=== PATIENT | male | born 2000 | race Two or more races ===

== ENCOUNTER 2019-12-08 14:04 | Emergency (ER) | payer OTHER ==
[2019-12-08 14:13] VITALS: BP 133/76; PULSE 84; TEMP 98; BMI 53.1
[2019-12-08] MEDS ORDERED: ACETAMINOPHEN 325 MG TABLET (FP) PO ONE (14:13)
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
[2019-12-08] MEDS ORDERED: ACETAMINOPHEN 325 MG TABLET (FP) ONE (15:06)
--- OUTSIDE RECORDS SUMMARY | 2019-12-08 15:17 | XMS ---
:2000 Author Organization [facility] Care Team Providers Name Role Phone MEHRDAD, [email or web address] Unavailable Unavailable Re-disclosure Warning The records that you are about to access may contain information from federally- assisted alcohol or drug abuse programs. If such information is present, then the following federally mandated warning applies: This information has been disclosed to you from records protected by federal confidentiality rules (42 CFR part 2). The federal rules prohibit you from making any further disclosure of this information unless further disclosure is expressly permitted by the written consent of the person to whom it pertains or as otherwise permitted by 42 CFR part 2. A general authorization for the release of medical or other information is NOT sufficient for this purpose. The Federal rules restrict any use of the information to criminally investigate or prosecute any alcohol or drug abuse patient.The records that you are about to access may contain highly sensitive health information, the redisclosure of which is protected by Article 27-F of the [facility] Public Health law. If you continue you may haveaccess to information: Regarding HIV / AIDS; Provided by facilities licensed or operated by the [facility] Office of Mental Health; or Provided by the [facility] Office for People With Developmental Disabilities. If such information is present, then the following [facility] mandated warning applies: This information has been disclosed to you from confidential records which are protected by state law. State law prohibits you from making any further disclosure of this information without the specific written consent of the person to whom it pertains, or as otherwise permitted by law. Any unauthorized further disclosure in violation of state law may result in a fine or shelter sentence or both. A general authorization for the release of medical or other information is NOT sufficient authorization for further disclosure. Encounters Encounter Providers Location Date Indications Data Source(s ) Outpatient Attender: [id number] 10/11/2019 [facility] ([facility] 01:13:44 PM [facility] EDT [facility]) Patient admitted. Outpatient Attender: [id number] [facility] 05/30/2019 07:17:01 AM [facility] ([facility] EDT [facility]) Patient admitted. Outpatient 02/10/2019 06:53:08 PM EST [facility] ([facility] ices) Outpatient 08/26/2018 08:08:00 PM EDT - [facility] ([facility] 12/10/2018 04:00:00 AM EDT [facility]) Outpatient 05/31/2018 08:04:00 AM EDT [facility] ([facility]) Outpatient 04/02/2018 05:00:00 AM EST [facility] ([facility]) Medications Medication Brand Start Product Dose Route Administrative [facility] Indications Reaction Description Data Name Date Form Instructions Instructions Source(s) Clozapine Clozar 11/03/ 2.0 Oral active [facility] 100 MG Oral il 2020 Table ([facility] 04:[facility]: [facility] [Clozaril] 00 AM [facility]) Sertraline Sertra 1.0 Oral active [facility] 100 MG Oral line 2020 Table ([facility] 04:[facility]: t [facility] 00 AM [facility] EDT Services) Clozapine Clozar 11/03/ 2.0 Oral active [facility] 25 MG Oral il 2020 Table ([facility] 04:[facility]: [facility] [Clozaril] 00 AM [facility] EDT [facility]) Clozapine Clozar 2.0 Oral active [facility] 25 MG Oral il 2020 Table ([facility] 04:00: t [facility] [Clozaril] 00 AM [facility]T [facility]) Clozapine Clozar 10/05/ 2.0 Oral active [facility] 100 MG Oral il 2020 Table ([facility] 04:00: t [facility] [Clozaril] 00 AM [facility] EDT [facility]) Sertraline Sertra 1.0 Oral active [facility] 100 MG Oral line 2020 Table ([facility] 04:00: t [facility] 00 AM Community EDT Services) Sertraline Sertra 1.0 Oral active [facility] 100 MG Oral line 2020 Table ([facility] 04:00: t [facility] 00 AM Community EDT Services) Clozapine Clozar 09/07/ 2.0 Oral active [facility] 100 MG Oral il 2020 Table ([facility] 04:00: t [facility] [Clozaril] 00 AM [facility]) Clozapine Clozar 09/07/ 2.0 Oral active [facility] 25 MG Oral il 2020 Table ([facility] 04:00: t [facility] [Clozaril] 00 AM [facility] EDT [facility]) Clozapine Clozar 08/10/ 2.0 Oral active [facility] 25 MG Oral il 2020 Table ([facility] 04:00: t [facility] [Clozaril] 00 AM [facility] EDT Services) Clozapine Clozar 08/10/ 2.0 Oral active [facility] 100 MG Oral il 2020 Table ([facility] 04:00: t [facility] [Clozaril] 00 AM [facility] EDT Services) Sertraline Sertra 1.0 Oral active [facility] 100 MG Oral line 2020 Table ([facility] 04:00: t [facility] 00 AM Community EDT Services) Clozapine Clozar 07/13/ 2.0 Oral active [facility] 25 MG Oral il 2020 Table ([facility] 04:00: t [facility] [Clozaril] 00 AM [facility] EDT Services) Clozapine Clozar 07/13/ 2.0 Oral active [facility] 100 MG Oral il 2020 Table ([facility] 04:00: t [facility] [Clozaril] 00 AM [facility] EDT Services) Sertraline Sertra 07/13/ 1.0 Oral active [facility] 100 MG Oral line 2020 Table ([facility] 04:00: t [facility] 00 AM Community EDT Services) Clozapine Clozar 06/15/ 2.0 Oral active [facility] 25 MG Oral il 2020 Table ([facility] 04:00: t [facility] [Clozaril] 00 AM [facility] EDT Services) Clozapine Clozar 06/15/ 2.0 Oral active [facility] 100 MG Oral il 2020 Table ([facility] 04:00: t er [facility] [Clozaril] 00 AM [facility] EDT Services) Sertraline Sertra 1.0 Oral active [facility] 100 MG Oral line 2020 Table ([facility] 04:00: t [facility] 00 AM Community EDT Services) Clozapine Clozar 05/18/ 2.0 Oral active [facility] 25 MG Oral il 2019 Table ([facility] 04:00: t [facility] [Clozaril] 00 AM [facility] EDT Services) Clozapine Clozar 05/18/ 2.0 Oral active [facility] 100 MG Oral il 2019 Table ([facility] 04:00: t [facility] [Clozaril] 00 AM Commun[facility] EDT Services) Sertraline Sertra 1.0 Oral active [facility] 100 MG Oral line 2019 Table ([facility] 04:00: t [facility] 00 AM Community EDT Services) Clozapine Clozar 2.0 Oral active [facility] 25 MG Oral il 2019 Table ([facility] 05:00: t [facility] [Clozaril] 00 AM Commun[facility] EST Services) Clozapine Clozar 04/07/ 2.0 Oral active [facility] 100 MG Oral il 2019 Table ([facility] 05:00: t [facility] [Clozaril] 00 AM Commun[facility] EST Services) Sertraline Sertra 1.0 Oral active [facility] 100 MG Oral line 2019 Table ([facility] 05:00: t [facility] 00 AM Community EST Services) Clozapine Clozar 30/ 2.0 Oral active [facility] 25 MG Oral il 2018 Table ([facility] 05:00: t [facility] [Clozaril] 00 AM Commun[facility] EST Services) Sertraline Sertra 1.0 Oral active [facility] 100 MG Oral line 2018 Table ([facility] 05:00: t [facility] 00 AM Community EST Services) Clozapine Clozar 30/ 2.0 Oral active [facility] 100 MG Oral il 2018 Table ([facility] 05:00: t [facility] [Clozaril] 00 AM Commun[facility] EST Services) Sertraline Sertra 02/10/ 1.0 Oral active [facility] 100 MG Oral line 2018 Table ([facility] 05:00: t [facility] 00 AM Community EST Services) Clozapine Clozar 02/10/ 2.0 Oral active [facility] 100 MG Oral il 2018 Table ([facility] 05:00: t [facility] [Clozaril] 00 AM Commun[facility] EST Services) Clozapine Clozar 02/10/ 2.0 Oral active [facility] 25 MG Oral il 2018 Table ([facility] 05:00: t [facility] [Clozaril] 00 AM Commun[facility] EST Services) 01/06/ ORAL active [facility] 2018 ([facility] 04:00: er [facility] 00 AM Community EDT Services) Sertraline Sertra 1.0 Oral active [facility] 100 MG Oral line 2018 Table ([facility] 04:00: t [facility] 00 AM Community EDT Services) Clozapine Clozar 2.0 Oral active [facility] 25 MG Oral il 2018 Table ([facility] 04:00: t [facility] [Clozaril] 00 AM Commun[facility] EDT Services) Clozapine Clozar 2.0 Oral active [facility] 100 MG Oral il 2018 Table ([facility] 04:00: t [facility] [Clozaril] 00 AM Commun[facility] EDT Services) 01/06/ ORAL active [facility] 2018 ( 04:00: er [facility] 00 AM Community EDT Services) 01/06/ ORAL active [facility] 2018 ( 04:00: er [facility] 00 AM Community EDT Services) 12/02/ ORAL complet [facility] 2019 ed ( 04:00: er [facility] 00 AM Community EDT Services) 12/02/ ORAL complet [facility] 2019 ed ( 04:00: er [facility] 00 AM Community EDT Services) 12/02/ ORAL complet [facility] 2019 ed ( 04:00: er [facility] 00 AM Community EDT Services) 11/04/ ORAL complet [facility] 2019 ed ( 04:00: er [facility] 00 AM Community EDT Services) 11/04/ ORAL complet [facility] 2019 ed ([facility] 04:00: er [facility] 00 AM Community EDT Services) 11/04/ ORAL complet [facility] 2019 ed ( 04:00: er [facility] 00 AM Community EDT Services) 09/23/ ORAL complet [facility] 2019 ed ([facility] 04:00: er [facility] 00 AM Community EDT Services) ORAL complet [facility] 2019 ed ([facility] 04:00: er [facility] 00 AM Community EDT Services) 09/23/ ORAL complet [facility] 2019 ed ([facility] 04:00: er [facility] 00 AM Community EDT Services) 08/26/ ORAL complet [facility] 2019 ed ([facility] 04:00: er [facility] 00 AM Community EDT Services) ORAL complet [facility] 2019 ed ([facility] 04:00: er [facility] 00 AM Community EDT Services) 08/26/ ORAL complet [facility] 2018 ed ([facility] 04:00: er [facility] 00 AM Community EDT Services) 07/01/ ORAL complet [facility] 2018 ed ([facility] 04:00: er [facility] 00 AM Community EDT Services) 07/01/ ORAL complet [facility] 2019 ed ([facility] 04[facility]00: er [facility] 00 AM Community EDT Services) ORAL complet [facility] 2019 ed ([facility] 04:00: er [facility] 00 AM Community EDT Services) ORAL complet [facility] 2019 ed ([facility] 04:00: er [facility] 00 AM Community EDT Services) ORAL complet [facility] 2019 ed ([facility] 04:00: er [facility] 00 AM Community EDT Services) ORAL complet [facility] 2019 ed ([facility] 04:00: er [facility] 00 AM Community EDT Services) Insurance Providers Payer name Policy type Policy ID Covered Covered green party's Policy P emiliano / Coverage green party ID relationship to [place] [facility] ormation type [place] [facility] [id number] MEDICAID COMM PLAN MEDICAID [id number] Problems, Conditions, and Diagnoses Code Display Name Description Problem Type Effective Data Dates Source(s) [id number] Schizoaffective Schizoaffective Complaint 06/14/2018 [facility] disorder, bipolar disorder, bipolar 05:30:00 PM ([place] type type EDT [facility])
[2019-12-08] MEDS ORDERED: KETOROLAC TROMETHAMINE 30 MG/1 ML VIAL IM ONE (16:25)
[2019-12-08] MEDS ORDERED: KETOROLAC TROMETHAMINE 30 MG/1 ML VIAL ONE (16:26)
== END 2019-12-08 17:20 | disposition home or self-care (01) ==
LOC: JER 14:04
DX: R51 Headache (principal)
CPT/HCPCS: 70450-TC; 70486-TC; 71046-TC-FY; 99285-25

== ENCOUNTER 2019-12-09 11:07 | Emergency (ER) | payer OTHER ==
[2019-12-09 11:14] VITALS: TEMP 97.6; BMI 51.6
[2019-12-09] MEDS ORDERED: ONDANSETRON *ODT* 4 MG TABLET SL ONE (11:24)
[2019-12-09] MEDS ORDERED: ONDANSETRON *ODT* 4 MG TABLET ONE (11:27)
--- OUTSIDE RECORDS SUMMARY | 2019-12-09 11:37 | XMS ---
:2000 [address] Organization [facility] Care Team Providers Name Role Phone RON, [id number] Unavailable Unavailable Re-disclosure Warning The records [...] by Article 27-F of the [facility] Public Health law. If you continue you may haveaccess to information: Regarding HIV / AIDS; Provided by facilities licensed or operated by the [facility] Office of Mental Health; or Provided by the [facility] Office for People With Developmental Disabilities. If such information is present, then the following [facility] mandated warning applies: This information has been [...] law may result in a fine or half-way sentence or both. A general authorization for the release of medical or other information is NOT sufficient authorization for further disclosure. Encounters Encounter Providers Location Date Indications Data Source(s ) Outpatient Attender: [id number] 10/11/2019 [facility] ([facility] 01:13:44 PM [facility] EDT [facility]) Patient admitted. Outpatient Attender: [id number] [facility] 05/30/2019 07:17:01 AM [facility] ([facility] EDT [facility]) Patient admitted. Outpatient 02/10/2019 06:53:08 PM EST [facility] ([facility] ices) Outpatient 08/26/2018 08:08:00 PM EDT - [facility] ([facility] 12/10/2018 04:00:00 AM EDT [facility]) Outpatient 05/31/2018 08:04:00 AM EDT [facility] ([facility]) Outpatient 04/02/2018 05:00:00 AM EST [facility] ([facility]) Medications Medication Brand Start Product Dose Route Administrative Pharmacy [facility] Indications Reaction Description Data Name Date Form Instructions Instructions Source(s) Clozapine Clozar 11/03/ 2.0 Oral active [facility] 100 MG Oral il 2020 Table ([facility]Cl[facility] 00 AM [facility] EDT Services) Sertraline Sertra 1.0 Oral active [facility] 100 MG Oral line 2020 Table ([facility] 00 AM [facility] EDT Services) Clozapine Clozar 11/03/ 2.0 Oral active [facility] 25 MG Oral il 2020 [facility] ([facility] [Clozaril] 00 AM [facility] EDT Services) Clozapine Clozar 2.0 Oral active [facility] 25 MG Oral il 2020 Table ([facility] [Clozaril] 00 AM [facility] EDT Services) Clozapine Clozar 10/05/ 2.0 Oral active [facility] 100 MG Oral il 2020 Table ([facility]: [facility] [Clozaril] 00 AM [facility] EDT Services) Sertraline Sertra 1.0 Oral active [facility] 100 MG Oral line 2020 Table ([facility]: [facility] 00 AM Community EDT Services) Sertraline Sertra 1.0 Oral active [facility] 100 MG Oral line 2020 Table ([facility]: [facility] 00 AM [facility] EDT Services) Clozapine Clozar 09/07/ 2.0 Oral active [facility] 100 MG Oral il 2020 Table ([facility]: [facility] [Clozaril] 00 AM [facility] EDT Services) Clozapine Clozar 09/07/ 2.0 Oral active [facility] 25 MG Oral il 2020 Table ([facility] [Clozaril] 00 AM Commun[facility] EDT Services) Clozapine Clozar 08/10/ 2.0 Oral active [facility] 25 MG Oral il 2020 Table ([facility]: [facility] [Clozaril] 00 AM [facility] EDT Services) Clozapine Clozar 08/10/ 2.0 Oral active [facility] 100 MG Oral il 2020 Table ([facility]: [facility] [Clozaril] 00 AM Commun[facility] EDT Services) Sertraline Sertra 1.0 Oral active [facility] 100 MG Oral line 2020 Table ([facility]: [facility] 00 AM Community EDT Services) Clozapine Clozar 07/13/ 2.0 Oral active [facility] 25 MG Oral il 2020 Table ([facility] [Clozaril] 00 AM Commun[facility] EDT Services) Clozapine Clozar 07/13/ 2.0 Oral active [facility] 100 MG Oral il 2020 Table ([facility] 04:[facility]: [facility] [Clozaril] 00 AM Commun[facility] EDT Services) Sertraline Sertra 07/13/ 1.0 Oral active [facility] 100 MG Oral line 2020 Table ([facility]: [facility] 00 AM Community EDT Services) Clozapine Clozar 06/15/ 2.0 Oral active [facility] 25 MG Oral il 2020 Table ([facility]: [facility] [Clozaril] 00 AM Commun[facility] y EDT Services) Clozapine Clozar 06/15/ 2.0 Oral active [facility] 100 MG Oral il 2020 Table ([facility] 04:[facility]: [facility] [Clozaril] 00 AM Commun[facility] EDT Services) Sertraline Sertra 1.0 Oral active [facility] 100 MG Oral line 2020 Table ([facility] 04:[facility]: [facility] 00 AM Community EDT Services) Clozapine Clozar 05/18/ 2.0 Oral active [facility] 25 MG Oral il 2019 Table ([facility]: [facility] [Clozaril] 00 AM Communit y EDT Services) Clozapine Clozar 05/18/ 2.0 Oral active [facility] 100 MG Oral il 2019 Table ([facility] 04:[facility]: [facility] [Clozaril] 00 AM Commun[facility] EDT Services) Sertraline Sertra 1.0 Oral active [facility] 100 MG Oral line 2019 Table ([facility] 04:[facility]: [facility] 00 AM Community EDT Services) Clozapine Clozar 2.0 Oral active [facility] 25 MG Oral il 2019 Table ([facility] 05:[facility]: [facility] [Clozaril] 00 AM Communit y EST Services) Clozapine Clozar 04/07/ 2.0 Oral active [facility] 100 MG Oral il 2019 Table ([facility] 05:[facility]: [facility] [Clozaril] 00 AM Communit y EST Services) Sertraline Sertra 1.0 Oral active [facility] 100 MG Oral line 2019 Table ([facility] 05:[facility]: [facility] 00 AM Community EST Services) Clozapine Clozar 30/ 2.0 Oral active [facility] 25 MG Oral il 2018 Table ([facility]: [facility] [Clozaril] 00 AM Communit y EST Services) Sertraline Sertra 1.0 Oral active [facility] 100 MG Oral line 2018 Table ([facility] 05:[facility]: [facility] 00 AM Community EST Services) Clozapine Clozar 30/ 2.0 Oral active [facility] 100 MG Oral il 2018 Table ([facility] 05:[facility]: [facility] [Clozaril] 00 AM Communit y EST Services) Sertraline Sertra 02/10/ 1.0 Oral active [facility] 100 MG Oral line 2018 Table ([facility] 05:[facility]: [facility] 00 AM Community EST Services) Clozapine Clozar 02/10/ 2.0 Oral active [facility] 100 MG Oral il 2018 Table ([facility] 05:[facility]: [facility] [Clozaril] 00 AM Communit y EST Services) Clozapine Clozar 02/10/ 2.0 Oral active [facility] 25 MG Oral il 2018 Table ([facility]: [facility] [Clozaril] 00 AM Communit y EST Services) 01/06/ ORAL active [facility]SMART 2018 ([facility] 04:00: er [facility] 00 AM Community EDT Services) Sertraline Sertra 1.0 Oral active NET SMART 100 MG Oral line 2018 Table ([facility] 04:[facility]: [facility] 00 AM Community EDT Services) Clozapine Clozar 2.0 Oral active [facility] 25 MG Oral il 2018 Table ([facility] 04:[facility]: [facility] [Clozaril] 00 AM Communit y EDT Services) Clozapine Clozar 2.0 Oral active [facility] 100 MG Oral il 2018 Table ([facility] 04:[facility]: [facility] [Clozaril] 00 AM Communit y EDT Services) 01/06/ ORAL active [facility]ART 2018 ( 04:00: [facility] 00 AM Community EDT Services) 01/06/ ORAL active [facility] 2018 ( 04:00: [facility] 00 AM Community EDT Services) 12/02/ ORAL complet [facility]ART 2019 ed ( 04:00: [facility] 00 AM Community EDT Services) 12/02/ ORAL complet [facility]SMART 2019 ed ( 04:00: [facility] 00 AM Community EDT Services) 12/02/ ORAL complet [facility]ART 2019 ed ( 04:00: [facility] 00 AM Community EDT Services) 11/04/ ORAL complet [facility]ART 2019 ed ( 04:00: [facility] 00 AM Community EDT Services) 11/04/ ORAL complet [facility]SMART 2019 ed ([facility] 04:00: [facility] 00 AM Community EDT Services) 11/04/ ORAL complet [facility]ART 2019 ed ( 04:00: [facility] 00 AM Community EDT Services) 09/23/ ORAL complet [facility]SMART 2019 ed ([facility] 04:00: [facility] 00 AM Community EDT Services) ORAL complet NETSMART 2019 ed ([facility] 04:00: [facility] 00 AM Community EDT Services) 09/23/ ORAL complet [facility]ART 2019 ed ([facility] 04:00: [facility] 00 AM Community EDT Services) 08/26/ ORAL complet [facility]SMART 2019 ed ([facility] 04:00: [facility] 00 AM Community EDT Services) ORAL complet [facility]SMART 2019 ed ( 04:00: [facility] 00 AM Community EDT Services) 08/26/ ORAL complet [facility]SMART 2018 ed ([facility] 04:00: [facility] 00 AM Community EDT Services) 07/01/ ORAL complet [facility]SMART 2018 ed ([facility] 04:00: [facility] 00 AM Community EDT Services) ORAL complet NETSMART 2019 ed ([facility] 04:00: [facility] 00 AM Community EDT Services) ORAL complet [facility]SMART 2019 ed ( 04:00: [facility] 00 AM Community EDT Services) ORAL complet NETSMART 2019 ed ([facility] 04:00: [facility] 00 AM Community EDT Services) ORAL complet NETSMART 2019 ed ([facility] 04:00: [facility] 00 AM Community EDT Services) ORAL complet [facility]SMART 2019 ed ([facility] 04:00: [facility] 00 AM Community EDT Services) Insurance Providers Payer name Policy type Policy ID Covered Covered republican's Policy P emiliano / Coverage republican ID relationship to [place] [employer] ormation type [place] [facility] [id number] MEDICAID COMM PLAN [facility] [id number] SP [id number] MEDICAID COMM PLAN MEDICAID [id number] Problems, Conditions, and Diagnoses Code Display Name Description Problem Type Effective Data Dates Source(s) [id number] Schizoaffective Schizoaffective Complaint 06/14/2018 [facility] disorder, bipolar disorder, bipolar 05:30:00 PM ([place] type type EDT [facility])
[2019-12-09] MEDS ORDERED: ACETAMINOPHEN 500 MG TABLET (FP) PO ONE (11:54)
[2019-12-09] MEDS ORDERED: ACETAMINOPHEN 325 MG TABLET (FP) ONE (12:03)
--- NOTE | 2019-12-09 12:52 | PDOC ---
History of Present Illness - General Chief Complaint: Nausea/Vomiting Stated Complaint: VOMITTING Time Seen by Provider: 12/09/19 11:53 History Source: Patient Exam Limitations: No Limitations - History of Present Illness Initial Comments: 12/09/19 13:02 19-year-old male presents to ED with complaints of nausea vomiting since waking up this morning along with a headache. 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 Patient has no other complaints at this time denies dizziness, fever, visual changes, or neck pain. Timing/Duration: 1-3 hours Severity: mild Associated Symptoms: reports: nausea/vomiting Past History - Travel History Traveled outside of the country in the last 30 days: No Close contact w/someone who was outside of country & ill: No - Medical History Allergies/Adverse Reactions: Allergies Allergy/AdvReac Type Severity Reaction Status Date / Time ziprasidone [From Geodon] Allergy Intermediate Swelling Verified 12/09/19 11:14 Asthma: Yes COPD: No - Immunization History Immunization Up to Date: Yes - Psycho-Social/Smoking History Patient Lives Alone: No Lives with/in: parents Smoking History: Never smoked Have you smoked in the past 12 months: No Information on smoking cessation initiated: No - Substance Abuse Hx (Audit-C & DAST Scrn) How often the patient has a drink containing alcohol: Never Score: In Men: 4 or > Positive; In Women: 3 or > Positive: 0 Screen Result (Pos requires Nsg. Audit-10AR): Negative In the last yr the pt used illegal drug/Rx for NonMed reason: No Score: Yes response is considered Positive: 0 Screen Result (Positive result requires Nsg. DAST-10): Negative Review of Systems - Review of Systems Able to Perform ROS?: Yes Constitutional: No: Symptoms Reported HEENTM: No: Symptoms Reported Respiratory: No: Symptoms reported Cardiac (ROS): No: Symptoms Reported ABD/GI: Yes: Nausea, Vomiting. No: Abdominal cramping : No: Symptoms Reported Musculoskeletal: No: Symptoms Reported Integumentary: No: Symptoms Reported Neurological: No: Symptoms reported *Physical Exam - Vital Signs Last Vital Signs Temp Pulse Resp BP Pulse Ox 97.6 F 76 18 126/63 100 12/09/19 11:10 12/09/19 11:10 12/09/19 11:10 12/09/19 11:10 12/09/19 11:10 - Physical Exam General Appearance: Yes: Nourished, Appropriately Dressed. No: Apparent Distress HEENT: positive: EOMI, YAMILE, TMs Normal (No hemotympanum), Pharynx Normal (Teeth intact). negative: Pale Conjunctivae Neck: positive: Supple Respiratory/Chest: positive: Lungs Clear, Normal Breath Sounds. negative: Respiratory Distress, Accessory Muscle Use Cardiovascular: positive: Regular Rhythm, Regular Rate. negative: Murmur Gastrointestinal/Abdominal: positive: Soft. negative: Tenderness Integumentary: positive: Ecchymosis (Noted to right cheek right temporal and under right eye ) Neurologic: positive: Motor Strength 5/5 (Ambulatory) ED Treatment Course - Medications Given in the ED: ED Medications Discontinued Medications Generic Name Dose Route Start Last Admin Trade Name Freq PRN Reason Stop Dose Admin Acetaminophen 975 mg 12/09/19 11:54 12/09/19 12:03 Tylenol - PO 12/09/19 11:55 975 mg ONCE ONE Administration Ondansetron HCl 4 mg 12/09/19 11:24 12/09/19 11:30 Zofran Odt - SL 12/09/19 11:25 4 mg ONCE ONE Administration Medical Decision Making - Medical Decision Making 12/09/19 12:05 Chief complaint: Patient with complaints of nausea vomiting x3 this morning. Patient given Toradol yesterday which he felt was headache but states soreness returned this morning and then the vomiting began. Patient has no complaints otherwise. Exam: Patient with normal physical exam except for ecchymosis to his right side of face. No active vomiting. Plan: Zofran and Tylenol ordered will reassess. 12/09/19 13:05 Patient states feeling much better. Symptoms are likely related to patient constantly watching TV and playing video games since discharge which may contribute to his symptoms concerning for postconcussive syndrome. Patient will be given strict instructions on what to avoid over the next 7 days Discharge - Discharge Information Problems reviewed: Yes Clinical Impression/Diagnosis: Postconcussional syndrome Condition: Improved Disposition: HOME - Follow up/Referral Referrals: Shoshana Low [Primary Care Provider] - - Patient Discharge Instructions Patient Printed Discharge Instructions: DI for Postconcussion Syndrome Additional Instructions: Please read over information enclosed. Please avoid any contact sports, reading any fine print or watching TV for more than 15 minutes at all the symptoms may worsen your symptoms. Please follow these instructions for the next 7 days return to the ED sooner. Please take Zofran as needed for nausea and Tylenol for headache - Post Discharge Activity
[2019-12-09 13:28] VITALS: BP 122/74; PULSE 75
== END 2019-12-09 13:26 | disposition home or self-care (01) ==
LOC: JER 11:07
DX: F07.81 Postconcussional syndrome (principal)
CPT/HCPCS: 99283-25; Q0162

== ENCOUNTER 2020-03-07 15:02 | Emergency (ER) | payer OTHER ==
[2020-03-07 15:31] VITALS: BP 118/67; PULSE 79; TEMP 98.1; BMI 56.9
[2020-03-07] MEDS ORDERED: ACETAMINOPHEN 1000 MG/100 ML VIAL (NON FORMULARY) IVPB ONE (16:28)
[2020-03-07] MEDS ORDERED: ACETAMINOPHEN INJECTION 100 ML IVPB ONE (16:30)
[2020-03-07 16:54] LABS: CHLORIDE 109 mmol/L (98-107); POTASSIUM 3.8 mmol/L (3.5-5.1); SODIUM 143 mmol/L (136-145)
[2020-03-07 16:55] LABS: BASO % 0.8 % (0-2.0); EOS % 0.7 % (0-4.5); HEMATOCRIT 40.7 % (35.4-49); HEMOGLOBIN 13.4 GM/dL (11.7-16.9); LYMPH % 16.5 % (8-40); MCH 28.8 pg (25.7-33.7); MCHC 33.1 g/dl (32.0-35.9); MEAN PLT VOLUME 9.2 fl (7.5-11.1); MONO % 8.8 % (3.8-10.2); NEUT % 73.2 % (42.8-82.8); PLATELET COUNT 285 K/MM3 (134-434); RBC 4.67 M/mm3 (4.00-5.60); RDW 14.6 % (11.9-15.9); WHITE BLOOD COUNT 11.1 K/mm3 (4.0-10.0)
[2020-03-07 16:56] LABS: ALBUMIN 3.8 g/dl (3.4-5.0); ANION GAP 5 MMOL/L (8-16); BLOOD UREA NITROGEN 10.8 mg/dL (7-18); CALCIUM 8.8 mg/dL (8.5-10.1); CO2 29 mmol/L (21-32)
[2020-03-07 16:57] LABS: GLUCOSE,RANDOM 88 mg/dL (74-106)
[2020-03-07 16:59] LABS: SGPT/ALT 28 U/L (13-61)
[2020-03-07 17:00] LABS: CREATININE 0.9 mg/dL (0.55-1.3); SGOT/AST 17 U/L (15-37)
[2020-03-07 17:01] LABS: BILIRUBIN,TOTAL 0.4 mg/dL (0.2-1); TOT PROT 8.3 g/dl (6.4-8.2)
[2020-03-07 17:02] LABS: ALK PHOS 120 U/L (45-117)
[2020-03-07 17:10] LABS: INR 1.19 (0.83-1.09); PROTHROMBIN TIME (PATIENT) 14.6 SEC (9.7-13.0)
== END 2020-03-07 19:43 | disposition home or self-care (01) ==
LOC: SUPCPDRO 15:02 → JER 15:02
PROC: 3E033NZ Introduction of Analgesics, Hypnotics, Sedatives into Peripheral Vein, Percutaneous Approach (ICD-10-PCS; principal; 2020-03-07)
DX: R52 Pain, unspecified (principal); V09.20XA Pedestrian injured in traffic accident involving unspecified motor vehicles, initial encounter
CPT/HCPCS: 36415; 71260-TC; 72125-TC; 72128-TC; 72131-TC; 74177-TC; 80053; 82550; 82553; 84484; 85025; 85610; 85730; 86850; 86900; 86901; 93005; 93010; 99285-25; J0131; Q9967

== ENCOUNTER 2020-05-06 14:16 | Emergency (ER) | payer OTHER ==
[2020-05-06 14:38] VITALS: BP 126/73; PULSE 90; TEMP 98.6; BMI 57.4
== END 2020-05-06 16:33 | disposition home or self-care (01) ==
LOC: JER 14:16
DX: U07.1 COVID-19 (principal)
CPT/HCPCS: 99283-25; C9803; U0003

== ENCOUNTER 2020-05-07 10:31 | Emergency (ER) | payer OTHER ==
[2020-05-07 10:38] VITALS: BMI 54.1
[2020-05-07] MEDS ORDERED: BAMLANIVIMAB 700 MG in SODIUM CHLORIDE 250 ML IVPB ONE (11:40)
[2020-05-07 11:41] LABS: BASO % 0.6 % (0-2.0); EOS % 1.1 % (0-4.5); HEMATOCRIT 44.4 % (35.4-49); HEMOGLOBIN 14.9 GM/dL (11.7-16.9); LYMPH % 21.7 % (8-40); MCH 28.8 pg (25.7-33.7); MCHC 33.5 g/dl (32.0-35.9); MEAN CELL VOLUME 86.2 fl (80-96); MEAN PLT VOLUME 8.8 fl (7.5-11.1); MONO % 9.8 % (3.8-10.2); NEUT % 66.8 % (42.8-82.8); PLATELET COUNT 265 K/MM3 (134-434); RBC 5.15 M/mm3 (4.00-5.60); RDW 14.3 % (11.9-15.9)
[2020-05-07 12:12] LABS: POTASSIUM 4.7 mmol/L (3.5-5.1)
[2020-05-07 12:14] LABS: BLOOD UREA NITROGEN 8.1 mg/dL (7-18); CALCIUM 9.1 mg/dL (8.5-10.1)
[2020-05-07 12:15] LABS: ALBUMIN 3.7 g/dl (3.4-5.0)
[2020-05-07 12:18] LABS: CREATININE 0.8 mg/dL (0.55-1.3)
[2020-05-07 12:19] LABS: BILIRUBIN,TOTAL 0.6 mg/dL (0.2-1); TOT PROT 8.7 g/dl (6.4-8.2)
[2020-05-07 12:36] VITALS: TEMP 98
[2020-05-07 13:46] VITALS: BP 110/68; PULSE 89
== END 2020-05-07 15:07 | disposition home or self-care (01) ==
LOC: JER 10:31 → JCOVINFU 10:31
DX: U07.1 COVID-19 (principal)
CPT/HCPCS: 36415; 71046-TC-FY; 80053; 85025; 99285-25; M0239; Q0239

== ENCOUNTER 2020-12-21 12:22 | Emergency (ER) | payer OTHER ==
[2020-12-21 12:30] VITALS: BP 129/70; PULSE 84; TEMP 98.4; BMI 43.3
[2020-12-21] MEDS ORDERED: METOCLOPRAMIDE HCL INJECTION 10 MG/2 ML VIAL IVPUSH ONE (13:32)
[2020-12-21] MEDS ORDERED: SODIUM CHLORIDE 1,000 ML IV STA (13:37)
[2020-12-21] MEDS ORDERED: METOCLOPRAMIDE HCL INJECTION 10 MG/2 ML VIAL ONE (13:44)
[2020-12-21 14:06] LABS: HEMATOCRIT 43.4 % (35.4-49); HEMOGLOBIN 14.5 GM/dL (11.7-16.9); MCH 29.6 pg (25.7-33.7); MCHC 33.4 g/dl (32.0-35.9); MEAN CELL VOLUME 88.9 fl (80-96); MEAN PLT VOLUME 8.5 fl (7.5-11.1); PLATELET COUNT 269 10^3/uL (134-434); RBC 4.88 M/mm3 (4.00-5.60); RDW 14.2 % (11.9-15.9)
[2020-12-21 14:19] LABS: CHLORIDE 107 mmol/L (98-107); SODIUM 142 mmol/L (136-145)
[2020-12-21 14:22] LABS: ALBUMIN 3.4 g/dl (3.4-5.0); CALCIUM 8.7 mg/dL (8.5-10.1)
[2020-12-21 14:23] LABS: ANION GAP 6 MMOL/L (8-16); BLOOD UREA NITROGEN 7.7 mg/dL (7-18); CO2 28 mmol/L (21-32)
[2020-12-21 14:25] LABS: GLUCOSE,RANDOM 108 mg/dL (74-106)
[2020-12-21 14:26] LABS: CREATININE 0.8 mg/dL (0.55-1.3); SGOT/AST 23 U/L (15-37); SGPT/ALT 41 U/L (13-61)
[2020-12-21 14:27] LABS: BILIRUBIN,TOTAL 0.2 mg/dL (0.2-1)
[2020-12-21 14:28] LABS: TOT PROT 7.6 g/dl (6.4-8.2)
[2020-12-21 14:29] LABS: ALK PHOS 110 U/L (45-117)
== END 2020-12-21 17:27 | disposition home or self-care (01) ==
LOC: JER 12:22 → JERFT 12:22
PROC: 3E033NZ Introduction of Analgesics, Hypnotics, Sedatives into Peripheral Vein, Percutaneous Approach (ICD-10-PCS; principal; 2020-12-21)
PROC: 3E033GC Introduction of Other Therapeutic Substance into Peripheral Vein, Percutaneous Approach (ICD-10-PCS; 2020-12-21)
PROC: 3E0337Z Introduction of Electrolytic and Water Balance Substance into Peripheral Vein, Percutaneous Approach (ICD-10-PCS; 2020-12-21)
DX: R51.9 Headache, unspecified (principal)
CPT/HCPCS: 36415; 70450-TC; 80053; 82550; 82553; 84484; 85027; 93005; 93010; 96361; 96374; 96375; 99284-25

== ENCOUNTER 2021-02-05 13:55 | Emergency (ER) | payer OTHER ==
[2021-02-05 14:00] VITALS: BP 130/79; PULSE 73; TEMP 97.8; BMI 42.5
[2021-02-05] MEDS ORDERED: METOCLOPRAMIDE HCL INJECTION 10 MG/2 ML VIAL IVPUSH ONE (14:45)
[2021-02-05] MEDS ORDERED: SODIUM CHLORIDE 1,000 ML IV STA (14:45)
[2021-02-05] MEDS ORDERED: KETOROLAC TROMETHAMINE 30 MG/1 ML VIAL IVPUSH ONE (14:45)
[2021-02-05] MEDS ORDERED: KETOROLAC TROMETHAMINE 30 MG/1 ML VIAL ONE (15:00)
[2021-02-05] MEDS ORDERED: METOCLOPRAMIDE HCL INJECTION 10 MG/2 ML VIAL ONE (15:00)
== END 2021-02-05 16:15 | disposition home or self-care (01) ==
LOC: JERFT 13:55
PROC: 3E033NZ Introduction of Analgesics, Hypnotics, Sedatives into Peripheral Vein, Percutaneous Approach (ICD-10-PCS; principal; 2021-02-05)
PROC: 3E0333Z Introduction of Anti-inflammatory into Peripheral Vein, Percutaneous Approach (ICD-10-PCS; 2021-02-05)
PROC: 3E033GC Introduction of Other Therapeutic Substance into Peripheral Vein, Percutaneous Approach (ICD-10-PCS; 2021-02-05)
PROC: 3E0337Z Introduction of Electrolytic and Water Balance Substance into Peripheral Vein, Percutaneous Approach (ICD-10-PCS; 2021-02-05)
DX: R51.9 Headache, unspecified (principal)
CPT/HCPCS: 96361; 96374; 96375; 99284-25

== ENCOUNTER 2021-02-06 12:16 | Emergency (ER) | payer OTHER ==
[2021-02-06 12:35] VITALS: BP 137/86; PULSE 76; TEMP 98; BMI 42.5
[2021-02-06] MEDS ORDERED: KETOROLAC TROMETHAMINE 60 MG/2 ML VIAL IM ONE (12:49)
[2021-02-06] MEDS ORDERED: KETOROLAC TROMETHAMINE 60 MG/2 ML VIAL ONE (12:50)
== END 2021-02-06 13:12 | disposition home or self-care (01) ==
LOC: JERFT 12:16
PROC: 3E0233Z Introduction of Anti-inflammatory into Muscle, Percutaneous Approach (ICD-10-PCS; principal; 2021-02-06)
DX: Q07.00 Arnold-Chiari syndrome without spina bifida or hydrocephalus (principal); H92.01 Otalgia, right ear; R51.9 Headache, unspecified
CPT/HCPCS: 82962; 96372; 99283-25

== ENCOUNTER 2023-06-07 12:08 | Emergency (ER) | payer OTHER ==
[2023-06-07 12:21] VITALS: BP 141/70; PULSE 84; RESP 18; TEMP 98.7; BMI 42.5
[2023-06-07] MEDS ORDERED: KETOROLAC TROMETHAMINE 30 MG/1 ML VIAL ONE (13:23)
[2023-06-07] MEDS: KETOROLAC TROMETHAMINE 30 MG/1 ML VIAL IVPUSH ONE (13:33)
[2023-06-07 13:45] LABS: BASO % 0.9 % (0-2.0); EOS % 2.2 % (0-4.5); HEMATOCRIT 47.4 % (35.4-49); HEMOGLOBIN 15.7 GM/dL (11.7-16.9); LYMPH % 13.2 % (8-40); MCH 30.2 pg (25.7-33.7); MCHC 33.1 g/dl (32.0-35.9); MEAN CELL VOLUME 91.2 fl (80-96); MONO % 11.8 % (3.8-10.2); NEUT % 71.9 % (42.8-82.8); PLATELET COUNT 233 10^3/uL (134-434); RDW 14.1 % (11.9-15.9); WHITE BLOOD COUNT 10.2 K/mm3 (4.0-10.0)
== END 2023-06-07 14:43 | disposition home or self-care (01) ==
LOC: JER 12:08
PROC: 3E0333Z Introduction of Anti-inflammatory into Peripheral Vein, Percutaneous Approach (ICD-10-PCS; principal; 2023-06-07)
DX: R07.89 Other chest pain (principal); R68.83 Chills (without fever)
CPT/HCPCS: 36415; 71046-TC-FY; 85025; 85379; 93005; 93010; 99284-25

== ENCOUNTER 2024-10-05 10:43 | Emergency (ER) | payer OTHER ==
[2024-10-05 10:54] VITALS: BP 149/80; PULSE 92; RESP 18; TEMP 98.4; BMI 45.4
[2024-10-05] MEDS ORDERED: KETOROLAC TROMETHAMINE 15 MG/ML VIAL ONE (11:36)
[2024-10-05] MEDS ORDERED: METOCLOPRAMIDE HCL INJECTION 10 MG/2 ML VIAL ONE (11:36)
[2024-10-05] MEDS ORDERED: ACETAMINOPHEN INJECTION 100 ML ONE (11:38)
[2024-10-05] MEDS: ACETAMINOPHEN 1000 MG/100 ML BAG IVPB ONE (11:50)
[2024-10-05] MEDS: KETOROLAC TROMETHAMINE 15 MG/ML VIAL IVPUSH ONE (11:52)
[2024-10-05] MEDS: METOCLOPRAMIDE HCL INJECTION 10 MG/2 ML VIAL IVPUSH ONE (11:53)
[2024-10-05] MEDS: SODIUM CHLORIDE 0.9% 500 ML INFUS.BAG IV ONE (11:53)
[2024-10-05 13:18] LABS: HCV DIAGNOSTIC IN-HOUSE W/RFLX NON-REACTIVE (NONREACTIVE)
[2024-10-05 13:19] LABS: HIV INTERPRETATION NEGATIVE (NEGATIVE)
== END 2024-10-05 12:53 | disposition home or self-care (01) ==
LOC: JERFT 10:43
PROC: 3E033NZ Introduction of Analgesics, Hypnotics, Sedatives into Peripheral Vein, Percutaneous Approach (ICD-10-PCS; principal; 2024-10-05)
PROC: 3E0333Z Introduction of Anti-inflammatory into Peripheral Vein, Percutaneous Approach (ICD-10-PCS; 2024-10-05)
PROC: 3E033GC Introduction of Other Therapeutic Substance into Peripheral Vein, Percutaneous Approach (ICD-10-PCS; 2024-10-05)
DX: R51.9 Headache, unspecified (principal)
CPT/HCPCS: 36415; 86803; 87389; 96374; 96375; 99284-25